=== PATIENT | male | born 1960 | race Caucasian/White ===

== ENCOUNTER → 2023-09-28 | Outpatient (CLI) | payer BC ==
[~2023-09-28] MED LIST: Iohexol 300 - 10 ML VIAL ONE; Lidocaine PF 2% (20 MG/ML) 2 ML VIAL ONE
== END ==
LOC: MHCPAIN 12:44
DX: M54.16 Radiculopathy, lumbar region (principal); M47.896 Other spondylosis, lumbar region; M96.1 Postlaminectomy syndrome, not elsewhere classified
CPT/HCPCS: J1100; Q9967

== ENCOUNTER → 2023-10-25 | Outpatient (CLI) | payer BC | LOC: MHCPAIN 13:00 | DX: M47.896 Other spondylosis, lumbar region (principal); M54.16 Radiculopathy, lumbar region; M96.1 Postlaminectomy syndrome, not elsewhere classified; M53.3 Sacrococcygeal disorders, not elsewhere classified | CPT/HCPCS: G0463 ==

== ENCOUNTER → 2024-01-22 | Outpatient (CLI) | payer BC | LOC: MHCPAIN 10:03 | DX: M41.86 Other forms of scoliosis, lumbar region (principal); M47.816 Spondylosis without myelopathy or radiculopathy, lumbar region; M48.061 Spinal stenosis, lumbar region without neurogenic claudication; Z98.1 Arthrodesis status | CPT/HCPCS: G0463 ==

== ENCOUNTER → 2024-02-20 | Outpatient (CLI) | payer BC | LOC: MHCPAIN 10:06 | DX: M46.1 Sacroiliitis, not elsewhere classified (principal); M47.22 Other spondylosis with radiculopathy, cervical region; M96.1 Postlaminectomy syndrome, not elsewhere classified; M41.86 Other forms of scoliosis, lumbar region; M48.061 Spinal stenosis, lumbar region without neurogenic claudication; E11.9 Type 2 diabetes mellitus without complications; Z79.4 Long term (current) use of insulin; I10 Essential (primary) hypertension | CPT/HCPCS: G0463 ==

== ENCOUNTER → 2024-02-29 | Outpatient (CLI) | payer BC ==
[~2024-02-29] MED LIST changes: -Lidocaine PF 2% (20 MG/ML) 2 ML VIAL ONE
== END ==
LOC: MHCPAIN 09:29
DX: M46.1 Sacroiliitis, not elsewhere classified (principal); M96.1 Postlaminectomy syndrome, not elsewhere classified; M54.50 Low back pain, unspecified
CPT/HCPCS: G0260; J0665; J1010; Q9967

== ENCOUNTER → 2024-03-19 | Outpatient (CLI) | payer BC | LOC: MHCPAIN 09:49 | DX: M41.86 Other forms of scoliosis, lumbar region (principal); M47.816 Spondylosis without myelopathy or radiculopathy, lumbar region; M48.061 Spinal stenosis, lumbar region without neurogenic claudication; M96.1 Postlaminectomy syndrome, not elsewhere classified | CPT/HCPCS: G0463 ==